=== PATIENT | female | born 1965 | race Caucasian/White ===

== ENCOUNTER 2016-10-02 16:53 | Emergency (ER) | payer OTHER ==
[~2016-10-02] VITALS: Wt 74.0 kg
[~2016-10-02 16:53] MED LIST: HYDR-906 PO; IBUP800T25 PO; TRAM50TA2 PO
[2016-10-02] MEDS ORDERED: LIDOCAINE/MYLANTA 40 ML BTL PO STA (19:10)
[2016-10-02] MEDS ORDERED: ONDANSETRON 4 MG INJ IM STA (19:10)
[2016-10-02] MEDS ORDERED: BELLADONNA/PHENOBARBITAL TAB PO STA (19:10)
[2016-10-02] MEDS ORDERED: FAMOTIDINE 20 MG TAB PO STA (19:10)
[2016-10-02] MEDS ORDERED: ONDA-43 PO (19:15)
[2016-10-02] MEDS ORDERED: MAG355OR14 PO (19:15)
[2016-10-02] MEDS ORDERED: FAMO40TA52 PO (19:15)
[2016-10-02] MEDS ORDERED: OMEP40CA6 PO (19:15)
[2016-10-02] MEDS ORDERED: OXYCODONE/ACETAMINOPHEN (5/325) TAB PO ONE (19:30)
--- NOTE | 2016-10-03 | ERD ---
ER Documentation Chief Complaint Date/Time DATE: 10/02/16 TIME: 23:53 Chief Complaint HERNIA PAIN; CT SHOWS INCARCERATED HERNIA HPI 51-year-old woman presents with continued abdominal pain and discomfort made worse after drinking alcohol for the last few days. She is an alcoholic and has regular episodes of epigastric and diffuse abdominal pain and cramping. She has a long history of multiple midline abdominal hernias and has had previous CT scans of the abdomen and pelvis the last one being about 2 months ago. She states she also had a CT scan of abdomen pelvis last month which revealed questionable incarcerated hernia, for that episode she was admitted to [facility], although due to insurance purposes she was scheduled to be transported to [facility] for surgery but could not be transferred because that hospital was full capacity, so surgery was deferred for an outpatient procedure. Since then she did follow-up with her surgeon Dr. Hsu who recommended she lose about 30 pounds prior to surgery patient states she has a history of psychiatric illness and uses psychiatric medications which cause her to gain weight and at her age she is unable to lose any more weight but with still like to have surgical herniorrhaphy. She denies vomiting, no blood per rectum or melena, no chest pain or shortness of breath, no suicidal homicidal ideation. ROS All systems reviewed and are negative except as per history of present illness. Medications Home Meds Active Scripts Ondansetron Hcl* (Zofran*) 4 Mg Tab, 4 MG PO Q6H Y for NAUSEA AND OR VOMITING, # 15 TAB Prov:ADWOA STEPHENSON MD 10/02/16 Omeprazole* (Omeprazole*) 40 Mg Capsule.dr, 40 MG PO DAILY, #30 CAP Prov:ADWOA STEPHENSON MD 10/02/16 Mag Hydrox/Al Hydrox/Simeth (Maalox Advanced Suspension) 355 Ml Oral.susp, 2 TSP PO TID for PAIN, #24 OZ Prov:ADWOA STEPHENSON MD 10/02/16 Famotidine* (Famotidine*) 40 Mg Tablet, 40 MG PO HS, #30 TAB Prov:ADWOA STEPHENSON MD 10/02/16 Discontinued Scripts Ibuprofen* (Motrin*) 800 Mg Tab, 800 MG PO Q6, #30 TAB Prov:SHA KOROMA PA-C 08/18/16 Tramadol HCl (Tramadol HCl) 50 Mg Tablet, 50 MG PO Q4 Y for PAIN, #30 TAB Prov:SHA KOROMA PA-C 08/18/16 Hydrocodone/Acetaminophen ([place] 5-325 Tablet) 1 Each Tablet, 1 TAB PO Q6H Y for PAIN, #20 TAB Prov:ELSI GARCIA DO 07/18/16 Allergies Allergies: Coded Allergies: Penicillins (Verified Allergy, Mild, RASHES, 10/02/16) PMhx/Soc Psychiatric illness, hypertension, chronic abdominal hernias and chronic abdominal pain, alcohol abuse History of Surgery: Yes (EXPL.LAP, APPY, hernia repair) Anesthesia Reaction: No Hx Neurological Disorder: No Hx Respiratory Disorders: Yes (ASTHMA) Hx Cardiac Disorders: No Hx Psychiatric Problems: Yes (Major depression ) Hx Miscellaneous Medical Probl: Yes (Hep C) Hx Alcohol Use: No Hx Substance Use: No Hx Tobacco Use: No Smoking Status: Light tobacco smoker FmHx Family History: No diabetes Physical Exam Vitals Vital Signs Date Time Temp Pulse Resp B/P Pulse Ox O2 Delivery O2 Flow Rate FiO2 10/02/16 16:57 98.3 117 18 170/93 99 Physical Exam GENERAL: Well-developed, well-nourished, appears intoxicated HEENT: Moist mucous membranes, pink conjunctiva, no cervical spine tenderness or step-off deformities, no goiter, no jaundice or icterus, extraocular movements intact without pain. No submandibular induration, and no pharyngeal erythema NEURO: Alert and oriented 3, cranial nerves II through XII intact bilaterally, pupils equal round reactive to light, no focal deficits or facial asymmetry, sensation intact distally Strength 5/5 in upper and lower extremities bilaterally CARDIAC: Tachycardic and right, no murmurs rubs or gallops LUNGS: Clear bilaterally no wheezing crackles or stridor ABDOMEN: Soft nontender, no guarding, no rigidity, no rebound, no psoas sign no obturator sign. Normoactive bowel sounds there is no signs of bowel incarceration on my examination. SKIN: Warm and dry to touch, no abrasions, contusions, or hematomas, no lacerations, no ecchymosis, no target lesions, and without ulcers EXTREMITIES: No clubbing cyanosis or edema, calves are bilaterally symmetrical, no Homans sign, no popliteal cord sign. Distal pulses equal and bilateral PSYCH: Normal affect without agitation or irritability Results 24 hrs Current Medications Medications (Trade) Dose Ordered Sig/Dell Route PRN Reason Start Time Stop Time Status Last Admin Dose Admin Famotidine (Pepcid) 40 mg ONCE STAT PO 10/02/16 19:10 10/02/16 19:13 DC 10/02/16 19:29 Miscellaneous Medication (Gi Cocktail (2)) 40 ml ONCE STAT PO 10/02/16 19:10 10/02/16 19:13 DC 10/02/16 19:29 Belladonna/ Phenobarbital () 2 tab ONCE STAT PO 10/02/16 19:10 10/02/16 19:13 DC 10/02/16 19:29 Ondansetron HCl (Zofran Inj) 4 mg ONCE STAT IM 10/02/16 19:10 10/02/16 19:13 DC 10/02/16 19:29 Oxycodone/ Acetaminophen (Percocet (5/ 325)) 1 tab ONCE ONCE PO 10/02/16 19:30 10/02/16 19:31 DC 10/02/16 19:29 Procedures/MDM I administered Zofran 4 mg intramuscular injection, GI cocktail 50 cc p.o., famotidine 40 mg p.o., and Percocet 1 tablet p.o. In an effort to help facilitate her surgery I contacted the covering physician for her health insurance group. I spoke to Dr. Terry who faxed over an immediate approval for surgical follow-up appointment for next week, he also agreed to speak to the surgeon directly and recommend to him that Ms. Santana undergo this elective herniorrhaphy without having to lose a further 30 pounds, which may be unreasonable given her current medical situation. Given my efforts Ms. Santana seems appeased and agreed to follow-up with her surgeon as recommended by Dr. Terry and I. Differential diagnoses considered, included but not limited to acute coronary syndrome, pulmonary embolism, aortic dissection, abdominal aortic aneurysm, sepsis, stroke, meningitis, encephalitis, pneumonia, appendicitis, cholecystitis , incarcerated hernia, bowel obstruction, pyelonephritis, nephrolithiasis, cystitis, as well as metabolic, hematologic, and electrolyte abnormalities. As well as abscess, cellulitis, fractures, and dislocations. Patient feels much better at this time, and vital signs are normal, symptoms have improved. I did give strict instructions to return to the ED if symptoms continue or worsen, patient will otherwise follow-up with primary care physician. Patient understood instructions and agreed to plan. Departure Diagnosis: Primary Impression: Ventral hernia Obstruction and gangrene presence: without obstruction or gangrene Qualified Code: K43.9 - Ventral hernia without obstruction or gangrene Additional Impressions: Alcohol abuse Gastritis Gastritis type: alcoholic Chronicity: acute Gastritis bleeding: without bleeding Qualified Code: K29.20 - Acute alcoholic gastritis without hemorrhage Condition: Good Patient Instructions: Alcohol Addiction, Gastritis (Adult), Hernia (Inguinal, Ventral, Umbilical) ADWOA STEPHENSON MD Oct 03, 2016 00:00
== END 2016-10-02 19:59 | disposition home or self-care (01) ==
LOC: E/R 16:53
DX: K43.9 Ventral hernia without obstruction or gangrene (principal); F10.10 Alcohol abuse, uncomplicated; K29.20 Alcoholic gastritis without bleeding; J45.909 Unspecified asthma, uncomplicated; I10 Essential (primary) hypertension; F17.210 Nicotine dependence, cigarettes, uncomplicated
CPT/HCPCS: 96372; J2405; Z7502; Z7610